=== PATIENT | female | born 1980 | race Caucasian/White ===

== ENCOUNTER 2019-02-16 07:37 | Observation (INO) ==
--- NOTE | 2019-02-16 09:05 | Emergency Department Note ---
ED Disposition Clinical Impression: Cocaine abuse, Peptic ulcer disease, Dehydration, S/P cholecystectomy, S/P C- section, Nausea vomiting and diarrhea, Enteritis, Nephrolithiasis Disposition: Still a Patient Condition on Discharge: Fair Instructions: DI for Diarrhea and Traveler's Diarrhea -- Adult, DI for Diarrhea and Traveler's Diarrhea -- Child, DI for Nausea -- Adult, DI for Nausea -- Child Referrals: Provider,Referral, [Primary Care Provider] - - Critical Care Critical Care Time: No Attestation: On 02/16/19, the high probability of a clinically significant, sudden or life threatening deterioration of the following system(s) required my full and direct attention, intervention and personal management. The time I documented below is in addition to time spent performing reported procedures but includes the following listed in this critical care notation. Medical Decision Making - Medical Records Medical records reviewed: Yes: I reviewed the patient's medical records. - Hal Inquiry Pt receiving controlled substance: No Hal was queried for this patient: No Vital Signs: 02/16/19 07:39 02/16/19 08:51 02/16/19 09:49 Temperature 98.1 F Temperature Source Oral Pulse Rate [Right Radial] 88 90 90 Respiratory Rate 20 20 Blood Pressure [Right Arm] 158/98 H 144/94 H 174/91 H Blood Pressure Mean [Right Arm] 118 110 118 Blood Pressure Source [Right Arm] Automatic Cuff Automatic Cuff Automatic Cuff Blood Pressure Position [Right Arm] Sitting Sitting Supine 02 Sat by Pulse Oximetry 99 98 99 Oxygen Delivery Method Room Air Room Air - Lab Data Lab Results 02/16/19 08:30: Stool Occult Blood Negative 02/16/19 08:55: WBC 8.0, RBC 5.26, Hgb 16.5 H, Hct 47.7 H, MCV 90.7, MCH 31.3 H, MCHC 34.5, RDW 13.3, Plt Count 278, MPV 7.1 L, Neut % (Auto) 61.8, Lymph % (Auto) 27.2, [place] % (Auto) 6.1, Eos % (Auto) 4.5, Baso % (Auto) 0.4, Neut # (Auto) 4.9, Lymph # (Auto) 2.2, [place] # (Auto) 0.5, Eos # (Auto) 0.4, Baso # (Auto) 0.0 02/16/19 08:55: Sodium 141, Potassium 3.6, Chloride 102, Carbon Dioxide 30 D, Anion Gap 12.6, BUN 12, Creatinine 0.97, Estimated Creat Clear 92, Estimated GFR 65, Est GFR ( Amer) 79, Glucose 95, Calcium 10.1 D, Total Bilirubin 0.6, AST 28 D, ALT 33 D, Alkaline Phosphatase 96, Troponin I < 0.02, Total Protein 8.6 H, Albumin 4.4 D, Globulin 4.2 H, Albumin/Globulin Ratio 1.0 L, Lipase 160 02/16/19 08:55: B-Natriuretic Peptide 71 02/16/19 08:55: Magnesium 1.9 Result diagrams: 02/16/19 08:55 02/16/19 08:55 Orders (Tests/Meds): ED MEDICATIONS Generic Name Dose Route Start Last Admin Trade Name Freq PRN Reason Stop Dose Admin Pantoprazole Sodium 80 mg/ 100 mls @ 10 mls/hr 02/16/19 09:00 02/16/19 09:25 Sodium Chloride IV 02/19/19 08:59 10 mls/hr .Q10H KEN Administration Discontinued Medications Generic Name Dose Route Start Last Admin Trade Name Freq PRN Reason Stop Dose Admin Famotidine 20 mg 02/16/19 08:47 02/16/19 09:24 Pepcid 20mg/2ml Vial IV 02/16/19 08:48 20 mg ONCE ONE Administration Sodium Chloride 1,000 mls @ 999 mls/hr 02/16/19 09:00 02/16/19 09:24 Sod Chlor 0.9% 1000ml Bag IV 02/16/19 10:00 999 mls/hr .Q1H1M KEN Administration Morphine Sulfate 2 mg 02/16/19 08:48 Morphine 2mg/Ml Syringe IV 02/16/19 08:49 ONCE ONE Ondansetron HCl 4 mg 02/16/19 08:48 02/16/19 09:35 Zofran 4mg/2ml Vial IV 02/16/19 08:49 4 mg ONCE ONE Administration Pantoprazole Sodium 40 mg 02/16/19 08:47 02/16/19 09:24 Protonix 40mg Vial IV 02/16/19 08:48 40 mg ONCE ONE Administration Sodium Chloride 8 ml 02/16/19 08:47 Saline Flush 10ml Syringe IV 02/16/19 08:48 ONCE ONE - CT Data CT Scan: Head, Abdomen Time Received: 09:[address] Reviewed: Yes: I have viewed the radiologist's interpretation Preliminary Findings: Abnormal Findings Narrative: CT of the brain without contrast: MPRESSION: Negative CT head without contrast. No acute finding CT of the abdomen and pelvis without contrast: 1. Findings most compatible with Enteritis..: Scattered moderate air-fluid levels throughout small bowel & proximal colon. No remarkable bowel wall thickening when compared to the recent February 14 CT there is Decreased solid stool and now increased liquid stool throughout the right colon and into transverse colon. 2. Stable nonobstructive calculus mid right kidney measuring 5.3 x 6.5 mm 3. Appendix normal.. Uterus upper normal in size. No adnexal pathology. No significant free fluid at pelvis. 4. Bilateral L5 spondylolysis. Stable grade 1 spinal listhesis L5 on S1. Mild levoscoliosis of L-spine - ECG Data Tracing #1 Normal sinus rhythm 78/minutes, biatrial enlargement with right axis deviation, normal ST segments and T waves, no acute findings, no old EKG for comparison. ECG initial impression date: 02/16/19 ECG initial impression time: 09:30 Medical Decision Narrative: i discuused with the patient her plan of care, she agreed for labs, head and repeated ct scan aware of the risks and benefits, she requested ice chips. 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 After finishing the first liter of fluids the patient's headache subsided. Reviewed her CT of the abdomen and it was positive for multiple fluid levels and possible enteritis. I discussed with the on-call physician Dr. Clark who agreed to admit the patient for supportive care. General Adult HPI - General Chief complaint: Nausea/Vomiting/Diarrhea Stated complaint: n/v, not sleeping Time Seen by Provider: 02/16/19 08:00 Mode of Arrival: EMS Source of Information: Patient Limitations: No Limitations Description of Symptoms (Recalled from ER Triage Doc. by RN): Pt c/o n/v and not sleeping since Monday of this week. Pt reports she has a hx of H.Pylori, states she was seen in ER yesterday and recieved IV fluids. Pt also c/o headache. Pt reports she thinks her headache is r/t "relapse" pt reports she "did a line of cocaine" yesterday. - History of Present Illness HPI narrative: 38 years old WF with history of PUD by endoscopy on July 2018 and she is on a dialu nexium, she is s/p cholecystectomy at the age of [age] years old, she is a former cociane addict and her sobriety anniversiery is 12/06/18 and [place]. Six days ago, she developed vomiting 5-10 times a day of yellow material and diarrhea 3 times a day brown chalky stool. She denies coffee ground emesis or melanotic stool. Also, she complaints of mild diffuse campy abdominal pain that is worse with vomiting and diarrhea. Her symptoms are worse with spicey food and better with ice cream, milk and yogurt. she denies chest pain, shortness of breath or hemoptysis, she denies dysuria, hematuria, or frequency. She has urinated once today and three times yesterday. she was seen in the [facility] ED 2 days ago and left against medical advice and went to [facility].. Yesterday, While in [facility] she net an old friend who offered her cocaine for releif of her abdominal symptoms and she snorted it but afterward she developed right sided throbbing headache affecting her frontal and parietal region without any visual symptoms, neck pain or rigidity. The headache is worse by lying down and better by sitting up. She denies neck stiffness, upper or lower extremity symptoms, numbness or tingling, loss of urine or bowel control. Her abdominal syptoms has persisted so she returned to our ED. The patient denies the use of IV drugs or opiate addicition, she has been cocine addict, sober since 12/06/18 and relapsed once yesterday and seemed remorseful. Onset (ago): day(s) (5-6 days) Location: head, abdomen Radiation: non-radiation Severity: moderate Severity scale (1-10): 7 Quality: dull Consistency: intermittent Associated symptoms: headaches, nausea/vomiting - Related Data Home Medications Medication Instructions Recorded Confirmed Omeprazole Magnesium [Prilosec Otc 20 mg PO DAILY 07/02/18 02/16/19 20mg Tab] Allergies Allergy/AdvReac Type Severity Reaction Status Date / Time ampicillin [AMPICILLIN] Allergy Mild Verified 02/16/19 07:46 cephalexin [From KEFLEX] Allergy Mild Verified 02/16/19 07:46 Iodinated Contrast Media - Allergy Mild Verified 02/16/19 07:46 Oral and [IODINATED CONTRAST MEDIA - ORAL AND] Penicillins [PENICILLINS] Allergy Mild Verified 02/16/19 07:46 sulfamethoxazole Allergy Mild Verified 02/16/19 07:46 [From SEPTRA] trimethoprim [From SEPTRA] Allergy Mild Verified 02/16/19 07:46 [facility] History - Hepatitis A Screen Drug use history?: Yes High risk sexual behaviors?: No History of sexually transmitted infection?: No Currently employed?: No Childcare worker?: No Do you have indoor plumbing?: Yes Do you have electricity?: Yes Attestation statement:: This patient has been screened for Hepatitis A risk factors. I have reviewed the patient's past medical history: Yes (I reviewed her most recent Ed visit, labs and ct scan. ) Medical History: Denies:: Cancer, Diabetes Mellitus Type 1, Diabetes Mellitus Type 2, MRSA Comment: [place] COCAINE---NOW CLEAN. TRICH. H. PYLORI Amputation: No Fractures: No Comment: P* C/S---2001. R C/S---2002. LAP. CHOLY---2002. R C/S---2009. 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 R C/S---2002. R C/S---2009. R C/S, PPBTL, EXTENSIVE LYSIS OF ADHESIONS---2011 ROS Obtained: Yes All systems reviewed & no additional complaints Physical Exam - General General appearance: alert, in no apparent distress, other (fully alert , provided full acount of her Past medical and present history. ) - Head Head exam: atraumatic, normocephalic, normal inspection - Eye Eye exam: Present: normal appearance, PERRL, EOMI. Absent: scleral icterus, jaundice, nystagmus, miosis - ENT ENT exam: Present: normal exam, normal oropharynx, mucous membranes moist, TM's normal bilaterally, normal external ear exam - Neck Neck exam: Present: normal inspection, full ROM, trachea midline, other (No neck rigidity or stiffness. ). Absent: tenderness, meningismus, lymphadenopathy - Chest Chest inspection: Present: normal inspection, symmetric chest wall rise. Absent: tenderness - Respiratory Respiratory exam: Present: normal lung sounds bilaterally. Absent: respiratory distress, wheezes - Cardiovascular Cardiovascular exam: Present: regular rate, normal rhythm, normal heart sounds. Absent: JVD - Abdominal Exam Abdominal exam: Present: soft, tenderness, normal bowel sounds. Absent: dis tention, guarding, rebound, rigidity, Estrada's sign (healed scar of prior lap jake, soft abdomen, with mild diffuse tenderness, with area of tenderness maximum over epigastric and LLQ. Voluntary guarding, without rebound or cross tenderness. ), tenderness at McBurney's Point - Rectal Exam Rectal exam: Present: normal rectal tone, hemorrhoids, other (small external hemorrhiides at 1'oclock ). Absent: fecal impaction - External exam: Present: normal external exam - Extremities Exam Extremities exam: Present: normal inspection, full ROM, normal capillary refill. Absent: calf tenderness - Back Exam Back exam: Present: normal inspection. Absent: tenderness, CVA tenderness (R), CVA tenderness (L) - Neurological Exam Neurological exam: Present: alert, oriented X3, CN II-XII intact, normal gait, motor sensory deficit, reflexes normal, other (Negative kernig's and brudzemski's signs, no other meningeal signs. ) - Psychiatric Psychiatric exam: Present: normal affect, normal mood - Skin Skin exam: Present: warm, dry, intact, normal color - Lymphatic Lymphatic Findings: no adenopathy
[2019-02-16 09:12] LABS: Basophils % 0.4 % (0.1-2.0); Eosinophils # 0.4 K/mm3 (0.0-0.4); Eosinophils % 4.5 % (0.1-12.0); Hematocrit 47.7 % (37.0-47.0); Hemoglobin 16.5 g/dL (12.2-16.2); Lymphocytes # 2.2 K/mm3 (0.7-4.5); Lymphocytes % 27.2 % (10-50); Mean Corpuscular HGB Conc 34.5 g/dL (31.8-35.4); Mean Corpuscular Hemoglobin 31.3 pg (27.0-31.2); Mean Corpuscular Volume 90.7 fl (81-99); Mean Platelet Volume 7.1 fl (7.4-10.4); Monocytes # 0.5 K/mm3 (0.1-1.0); Monocytes % 6.1 % (1.7-9.3); Neutrophils # 4.9 K/mm3 (1.8-7.8); Neutrophils % 61.8 % (37.0-80.0); Platelet Count 278 K/mm3 (142-424); Red Blood Count 5.26 M/mm3 (4.20-5.40); Red Cell Distribution Width 13.3 % (11.5-17.5)
[2019-02-16 09:23] LABS: Alanine Aminotransferase 33 U/L (12-78); Albumin Level 4.4 gm/dL (3.4-5.0); Alkaline Phosphatase 96 U/L (46-116); Anion Gap 12.6 mEq/L (5-15); Aspartate Amino Transferase 28 U/L (15-37); Bilirubin,Total 0.6 mg/dL (0.2-1.0); Blood Urea Nitrogen 12 mg/dL (7-18); Carbon Dioxide 30 mmol/L (21.0-32.0); Chloride 102 mmol/L (98-107); Globulin 4.2 gm/dl (1.3-3.2); Glucose 95 mg/dL (74-106); Lipase 160 u/L (73-393); Potassium 3.6 mmoL/L (3.5-5.1); Sodium 141 mmol/L (136-145); Total Protein,Serum 8.6 gm/dL (6.4-8.2)
[2019-02-16 09:35] LABS: Calcium 10.1 mg/dL (8.5-10.1)
--- NOTE | 2019-02-16 11:10 | History & Physical Report ---
*Admission Date: 02/16/19 [facility] History Medical History: Denies:: Cancer, Diabetes Mellitus Type 1, Diabetes Mellitus Type 2, MRSA *Have you ever received a pneumonia vaccine?: No Amputation: No Fractures: No - *Social History Smoking Status: Current every day smoker Tobacco Type: cigarettes # Packs/Day (cigarettes): 1 Alcohol Intake: never Alcohol Intake Frequency:: other Substance Use Type: former substance user, marijuana, crack/cocaine *Occupational Status:: employed *Travel in the last 8 weeks: None - Psychiatric History Expresses thoughts of harming self/others: None Suicide Plan Description: No Plan Family Hx:: No significant family history 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 Home Medications Medication Instructions Recorded Confirmed Type Omeprazole Magnesium [Prilosec Otc 20 mg PO DAILY 07/02/18 02/16/19 History 20mg Tab] Allergies Allergy/AdvReac Type Severity Reaction Status Date / Time ampicillin [AMPICILLIN] Allergy Mild Verified 02/16/19 07:46 cephalexin [From KEFLEX] Allergy Mild Verified 02/16/19 07:46 Iodinated Contrast Media - Allergy Mild Verified 02/16/19 07:46 Oral and [IODINATED CONTRAST MEDIA - ORAL AND] Penicillins [PENICILLINS] Allergy Mild Verified 02/16/19 07:46 sulfamethoxazole Allergy Mild Verified 02/16/19 07:46 [From SEPTRA] trimethoprim [From SEPTRA] Allergy Mild Verified 02/16/19 07:46 Exam Vital signs and Labs for Last 24 Hours: Temp Pulse Resp BP Pulse Ox 98.4 F 92 H 17 137/66 99 02/16/19 10:47 02/16/19 10:47 02/16/19 10:47 02/16/19 10:47 02/16/19 10:47 Laboratory Results - last 24 hr 02/16/19 08:30: Stool Occult Blood Negative 02/16/19 08:55: WBC 8.0, RBC 5.26, Hgb 16.5 H, Hct 47.7 H, MCV 90.7, MCH 31.3 H, MCHC 34.5, RDW 13.3, Plt Count 278, MPV 7.1 L, Neut % (Auto) 61.8, Lymph % (Auto) 27.2, [place] % (Auto) 6.1, Eos % (Auto) 4.5, Baso % (Auto) 0.4, Neut # (Auto) 4.9, Lymph # (Auto) 2.2, [place] # (Auto) 0.5, Eos # (Auto) 0.4, Baso # (Auto) 0.0 02/16/19 08:55: Sodium 141, Potassium 3.6, Chloride 102, Carbon Dioxide 30 D, Anion Gap 12.6, BUN 12, Creatinine 0.97, Estimated Creat Clear 92, Estimated GFR 65, Est GFR ( Amer) 79, Glucose 95, Calcium 10.1 D, Total Bilirubin 0.6, AST 28 D, ALT 33 D, Alkaline Phosphatase 96, Troponin I < 0.02, Total Protein 8.6 H, Albumin 4.4 D, Globulin 4.2 H, Albumin/Globulin Ratio 1.0 L, Lipase 160 02/16/19 08:55: B-Natriuretic Peptide 71 02/16/19 08:55: Magnesium 1.9 I & O for Last 24 hours: Intake & Output 02/13/19 02/14/19 02/15/19 02/16/19 23:59 23:59 23:59 23:59 Intake Total 1000 / 1000 Balance 1000 / 1000 Weight 72.745 kg
[2019-02-16 11:56] LABS: Amphetamine/Metha Screen,Urine Positive ng/mL (<1000); Barbiturates Screen,Urine Negative ng/mL (<200); Benzodiazepines Screen,Urine Negative ng/mL (<200); Cannabinoid Screen,Urine Positive ng/mL (<50); Cocaine Screen,Urine Positive ng/mL (<300); Methadone Screen,Urine Negative ng/mL (<300); Opiate Screen,Urine Negative ng/mL (<300); Phencyclidine Screen,Urine Negative ng/mL (<25)
--- NOTE | 2019-02-16 15:33 | H&P/Discharge Summary ---
General - General Admission date:: 02/16/19 Discharge date: 02/16/19 *Admission Date: 02/16/19 *Chief complaint: Headache, nausea, vomiting *History of present illness: Jackie is a 38-year-old female with history of gastritis, drug abuse, who presented to the ER due to nausea and vomiting, and severe headache. Assessment in the ER consisted of CT HEAD, ABDOMEN, PELVIS, and lab work. CT was negative for any intracranial pathology. Abdomen showed mild ileus which is consistent with her nausea and vomiting. Lab work was relatively unremarkable aside from positive findings of amphetamines, cocaine, cannabinoids. She was treated for enteritis and given p.o. challenge and antiemetics. She was unable to keep anything down in the ER. However after getting to the floor and addressing her headache with 2 mg of morphine and 650 mg of Tylenol, patient's headache resolved. She is well was tolerating p.o. liquids and Jell-O without any nausea or upset stomach over the course of 4 hours while on the floor. No fever. Mild elevation in blood pressure suspected to be due to pain as it improved with resolution of her headache. Patient was noticeably anxious throughout her entire visit but not inappropriate. [facility] History I have reviewed the patient's past medical history: Yes Medical History: Denies:: Cancer, Diabetes Mellitus Type 1, Diabetes Mellitus Type 2, MRSA *Have you ever received a pneumonia vaccine?: No *Have you received a flu vaccine this season?: Yes Other Surgeries: Yes: Cholecystectomy, (X4), Dilation and Curettage (X3) Amputation: No Fractures: No - *Social History Educational Level: Attended High School Smoking Status: Current every day smoker Tobacco Type: cigarettes # Packs/Day (cigarettes): 1 Alcohol Intake: current Alcohol Intake Frequency:: a few times a month Substance Use Type: marijuana, crack/cocaine, methamphetamine Last Used Substance: days (ago) *Occupational Status:: employed Housing: house Household Members: family *Travel in the last 8 weeks: None - Psychiatric History Expresses thoughts of harming self/others: None Suicide Plan Description: No Plan Family Hx:: Diabetes, Hyperlipidemia 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 Review of Systems - Review of Systems Review of systems:: pertinent systems reviewed and negative unless documented below Exam Vital signs and Labs for Last 24 Hours: Temp Pulse Resp BP Pulse Ox 98.4 F 92 H 17 137/66 99 02/16/19 10:47 02/16/19 10:47 02/16/19 10:47 02/16/19 10:47 02/16/19 11:50 Laboratory Results - last 24 hr 02/16/19 08:30: Stool Occult Blood Negative 02/16/19 08:55: WBC 8.0, RBC 5.26, Hgb 16.5 H, Hct 47.7 H, MCV 90.7, MCH 31.3 H, MCHC 34.5, RDW 13.3, Plt Count 278, MPV 7.1 L, Neut % (Auto) 61.8, Lymph % (Auto) 27.2, [place] % (Auto) 6.1, Eos % (Auto) 4.5, Baso % (Auto) 0.4, Neut # (Auto) 4.9, Lymph # (Auto) 2.2, [place] # (Auto) 0.5, Eos # (Auto) 0.4, Baso # (Auto) 0.0 02/16/19 08:55: Sodium 141, Potassium 3.6, Chloride 102, Carbon Dioxide 30 D, Anion Gap 12.6, BUN 12, Creatinine 0.97, Estimated Creat Clear 92, Estimated GFR 65, Est GFR ( Amer) 79, Glucose 95, Calcium 10.1 D, Total Bilirubin 0.6, AST 28 D, ALT 33 D, Alkaline Phosphatase 96, Troponin I < 0.02, Total Protein 8.6 H, Albumin 4.4 D, Globulin 4.2 H, Albumin/Globulin Ratio 1.0 L, Lipase 160 02/16/19 08:55: B-Natriuretic Peptide 71 02/16/19 08:55: Magnesium 1.9 02/16/19 11:30: Urine Opiates Screen Negative, Urine Methadone Screen Negative, Ur Barbituates Screen Negative, Ur Phencyclidine Scrn Negative, Ur Amphetamines Screen Positive H, U Benzodiazepines Scrn Negative, Urine Cocaine Screen Positive H, U Marijuana (THC) Screen Positive H I & O for Last 24 hours: Intake & Output 02/13/19 02/14/19 02/15/19 02/16/19 23:59 23:59 23:59 23:59 Intake Total 1000 / 1000 Balance 1000 / 1000 Weight 72.745 kg - *Routine HEENT Exam Head: Present: normocephalic Eye: Present: EOMI, PERRL ENT: Present: mucous membranes moist - *Routine Neck Exam Present: supple, full ROM. Absent: JVD - *Routine Respiratory Exam Present: CTA bilaterally. Absent: wheezes - *Routine Cardiovascular Exam Present: RRR, Normal S1, Normal S2. Absent: murmur - *Routine Abdominal Exam Present: soft (Upper active bowel sounds, nontender) - *Routine Rectal Exam Patient deferred: visual exam - *Routine Exam Patient deferred: external exam - *Routine Extremities Exam Absent: cyanosis, clubbing, edema - *Routine Skin Exam Present: intact. Absent: cyanosis, erythema - *Routine Neurological Exam Present: alert, oriented X3. Absent: altered mental status - Routine Psychiatric Exam Present: cooperative, anxious. Absent: visual hallucinations, tactile hallucinations Comments: Pressured speech Hospital Course Hospital Course: Admitted to the floor. Tolerated p.o. intake. Required no further IV fluids. Stated she felt good enough to go home. Recommended monitoring overnight with continued p.o. challenge and antiemetics if needed, patient stated however because her headache was resolved and she could do those things at home she felt more comfortable going home. Hemodynamically patient remained stable, unable to produce stool for stool study or screening for H. pylori as the patient states she has had a history of this and would like to have this ruled out again. Medically stable for discharge home. Results Labs on day of discharge: Labs from last 24 hours 02/16/19 02/16/19 02/16/19 11:30 08:55 08:55 WBC RBC Hgb Hct MCV MCH MCHC RDW Plt Count MPV Neut % (Auto) Lymph % (Auto) [place] % (Auto) Eos % (Auto) Baso % (Auto) Neut # (Auto) Lymph # (Auto) [place] # (Auto) Eos # (Auto) Baso # (Auto) Sodium Potassium Chloride Carbon Dioxide Anion Gap BUN Creatinine Estimated Creat Clear Estimated GFR Est GFR ( Amer) Glucose Calcium Magnesium 1.9 Total Bilirubin AST ALT Alkaline Phosphatase Troponin I B-Natriuretic Peptide 71 Total Protein Albumin Globulin Albumin/Globulin Ratio Lipase Stool Occult Blood Urine Opiates Screen Negative Urine Methadone Screen Negative Ur Barbituates Screen Negative Ur Phencyclidine Scrn Negative Ur Amphetamines Screen Positive H U Benzodiazepines Scrn Negative Urine Cocaine Screen Positive H U Marijuana (THC) Screen Positive H 02/16/19 02/16/19 02/16/19 08:55 08:55 08:30 WBC 8.0 RBC 5.26 Hgb 16.5 H Hct 47.7 H MCV 90.7 MCH 31.3 H MCHC 34.5 RDW 13.3 Plt Count 278 MPV 7.1 L Neut % (Auto) 61.8 Lymph % (Auto) 27.2 [place] % (Auto) 6.1 Eos % (Auto) 4.5 Baso % (Auto) 0.4 Neut # (Auto) 4.9 Lymph # (Auto) 2.2 [place] # (Auto) 0.5 Eos # (Auto) 0.4 Baso # (Auto) 0.0 Sodium 141 Potassium 3.6 Chloride 102 Carbon Dioxide 30 D Anion Gap 12.6 BUN 12 Creatinine 0.97 Estimated Creat Clear 92 Estimated GFR 65 Est GFR ( Amer) 79 Glucose 95 Calcium 10.1 D Magnesium Total Bilirubin 0.6 AST 28 D ALT 33 D Alkaline Phosphatase 96 Troponin I < 0.02 B-Natriuretic Peptide Total Protein 8.6 H Albumin 4.4 D Globulin 4.2 H Albumin/Globulin Ratio 1.0 L Lipase 160 Stool Occult Blood Negative Urine Opiates Screen Urine Methadone Screen Ur Barbituates Screen Ur Phencyclidine Scrn Ur Amphetamines Screen U Benzodiazepines Scrn Urine Cocaine Screen U Marijuana (THC) Screen DS: Diagnosis - Discharge Diagnosis (1) Cocaine abuse Status: Chronic Problem details: Drug screen positive for THC, cocaine, amphetamines. May account for some of the symptoms she is experienced as well as her anxiousness and pressured speech. Patient appropriate during visit however. (2) Dehydration Status: Resolved Problem details: Mild based on assessment. Given 2 L of LR during admission. Tolerating oral fluids. Continue rehydration orally. (3) Enteritis Status: Acute Problem details: No vomiting during admission. Plan to continue PPI at discharge. Needs outpatient assessment including EGD to assess for abnormalities. Given collection tools for H. pylori stool antigen. Order sent to lab. Instructed to return sample when obtained at home. (4) Nephrolithiasis Status: Chronic Problem details: 5 to 6 mm stone in right kidney, nonobstructive. May account for some of her symptoms however no concern for obstruction at this time, hydronephrosis. No acute needs. We will follow-up in the outpatient setting and consider referral to urology for possible lithotripsy given size decreases chance of spontaneous passage. Discharge Medications - Medications for Discharge Home Medication List at Discharge: New Ondansetron [Zofran 4mg ODT] 4 mg PO Q6HP PRN 3 Days #12 tab.rapdis PRN Reason: Nausea Pantoprazole Sodium [Protonix 40mg tablet] 40 mg PO DAILY 30 Days #30 tab Discontinued Omeprazole Magnesium [Prilosec Otc 20mg Tab] 20 mg PO DAILY Disposition Disposition: Home, Self-Care
== END 2019-02-16 16:03 | disposition home or self-care (01) ==
LOC: ER 07:37 → 2ND 07:37
PROVIDERS: ADMIT Internal Medicine Adolescent Medicine; ATTEND Internal Medicine Adolescent Medicine
DX: K27.9 Peptic ulcer, site unspecified, unspecified as acute or chronic, without hemorrhage or perforation; R11.2 Nausea with vomiting, unspecified; Z88.0 Allergy status to penicillin; F12.90 Cannabis use, unspecified, uncomplicated; Z79.899 Other long term (current) drug therapy; R19.7 Diarrhea, unspecified; F14.10 Cocaine abuse, uncomplicated; K52.9 Noninfective gastroenteritis and colitis, unspecified; Z88.8 Allergy status to other drugs, medicaments and biological substances; E86.0 Dehydration; F11.90 Opioid use, unspecified, uncomplicated; Z72.0 Tobacco use; N20.0 Calculus of kidney
CPT/HCPCS: 70450; 74176; 80053; 80305; 82272; 83690; 83735; 83880; 84484; 85025; 93005; 96365; 96367; 96375; 99284; G0328; G0378; J2405

== ENCOUNTER 2020-10-01 09:56 | Emergency (ER) | payer BC, SELFPAY ==
[2020-10-01 10:25] VITALS: BP 144/86; PULSE 97; RESP 14; TEMP 37.2; O2SAT 100; BMI 31.2
--- NOTE | 2020-10-01 10:44 | HMH.EDUTC ---
[facility] [place] Clinical Impression: Viral syndrome, Exposure to COVID-19 virus Sinusitis Qualifiers: Sinusitis location: unspecified location Chronicity: acute Recurrence: non-recurrent Qualified Code(s): J01.90 - Acute sinusitis, unspecified Disposition: Home, Self-Care Condition on Discharge: Good Instructions: Sinusitis, DI for Sinusitis, Preventing the Spread of Coronavirus Discharge Instructions Additional Instructions: Drink plenty of fluids. Take tylenol or ibuprofen for pain or fever. Take the medications as directed. Follow up with your regular doctor. GO TO THE ER FOR ANY WORSENING SYMPTOMS Prescriptions: Brompheniramine/Pseudoephed/Dm [Bromfed Dm Cough Syrup] 5 ml PO Q6HP PRN #240 syrup PRN Reason: Cough Transmission Status: Received by [id number] Azithromycin [Z-Homero 250mg Tab*] 250 mg PO UD DOSE PK #6 tab Transmission Status: Received by [id number] Referrals: Leoncio Buitrago [Primary Care Provider] - Time of Disposition: 10:48 Medical Decision Making - Medical Records Medical records reviewed: No: I reviewed the patient's medical records. - Hal Inquiry Pt receiving controlled substance: No Vital Signs: 10/01/20 10:25 10/01/20 10:58 Temperature 99.0 F 99.0 F Temperature Source Oral Pulse Rate 97 H Pulse Rate [Right Brachial] 97 H Respiratory Rate 14 14 Blood Pressure 144/86 H Blood Pressure [Right Arm] 144/86 H Blood Pressure Mean [Right Arm] 105 Blood Pressure Source [Right Arm] Automatic Cuff Blood Pressure Position [Right Arm] Sitting 02 Sat by Pulse Oximetry 100 Oxygen Delivery Method Room Air Orders (Tests/Meds): ORDERS Category Date Time Status Covid-19 Nasal PCR Sendout Kvng Routine Lab 10/01/20 10:20 Stop Req [facility] [place] - General Stated complaint: can't smell or taste Time Seen by Provider: 10/01/20 10:44 Mode of Arrival: Ambulatory Source of Information: Patient Limitations: No Limitations Description of Symptoms (Recalled from Triage Doc. by RN): PATIENT C/O LOSS OF TASTE AND SMELL HEENT Symptoms (Recalled from RN notes): Yes Resp Symptoms (Recalled from RN notes): No Skin Symptoms (Recalled from RN notes): No MS Symptoms (Recalled from RN notes): No Functional Status (Recalled from RN notes): WNL - History of Present Illness Provider Complaint: She reports that over the past 2 days she has developed sinus congestion and a cough. She also reports that her sense of taste and smell are decreased. She has a history of getting sinus infections that affect her taste and smell, but she wants to be tested for covid to be safe. She denies fever, chills, body aches, nausea, vomiting, diarrhea. - Related Data Previous Rx's Medication Instructions Recorded Azithromycin [Z-Homero 250mg Tab*] 250 mg PO UD DOSE PK #6 tab 10/01/20 Brompheniramine/Pseudoephed/Dm 5 ml PO Q6HP PRN #240 syrup 10/01/20 [Bromfed Dm Cough Syrup] Allergies Allergy/AdvReac Type Severity Reaction Status Date / Time ampicillin [AMPICILLIN] Allergy Mild Verified 02/16/19 07:46 cephalexin [From KEFLEX] Allergy Mild Verified 02/16/19 07:46 Iodinated Contrast Media Allergy Mild Verified 02/16/19 07:46 [IODINATED CONTRAST MEDIA - ORAL AND] Penicillins [PENICILLINS] Allergy Mild Verified 02/16/19 07:46 sulfamethoxazole Allergy Mild Verified 02/16/19 07:46 [From SEPTRA] trimethoprim [From SEPTRA] Allergy Mild Verified 02/16/19 07:46 - Worker's Comp Is this a Worker's Comp case?: No [facility] History - Hepatitis A Screen Drug use history?: No High risk sexual behaviors?: No History of sexually transmitted infection?: No Currently employed?: No Childcare worker?: No Do you have indoor plumbing?: Yes Do you have electricity?: Yes Attestation statement:: This patient has been screened for Hepatitis A risk factors. I have reviewed the patient's past medical history: Yes Medical History: Denies:: Cancer, Diabetes Mellitus Type
[2020-10-01 10:58] VITALS: BP 144/86; PULSE 97; RESP 14; TEMP 37.2; O2SAT 100
[2020-10-02 09:41] LABS: Covid-19 Nasal PCR Sendout Lex POSITIVE
--- NOTE | 2020-10-02 10:09 | PC.NURSE ---
Patient was on 2nd floor as a visitor, was notified by myself at this time that COVID results were positive.
== END 2020-10-01 11:00 | disposition home or self-care (01) ==
PROVIDERS: Emergency Provider Nurse Practitioner Family; PCP Family Medicine
DX: U07.1 COVID-19 (principal); J01.90 Acute sinusitis, unspecified; F17.210 Nicotine dependence, cigarettes, uncomplicated; Z88.0 Allergy status to penicillin; Z88.2 Allergy status to sulfonamides
CPT/HCPCS: 99201; U0004